=== PATIENT | male | born 1950 | race Caucasian/White ===

== ENCOUNTER → 2018-08-26 | Outpatient (CLI) | payer OTHER ==
[2018-08-26 17:04] LABS: BASOPHILS ABSOLUTE AUTO 0.05 K/mm3 (0.00-0.23); BASOPHILS PERCENT AUTO 1 % (0-2); EOSINOPHILS PERCENT AUTO 1 % (0-6); Hematocrit 46.3 % (37.0-53.0); Hemoglobin 15.9 g/dL (13.5-17.5); IMMATURE GRAN ABSOLUTE AUTO 0.02 K/mm3 (0.00-0.10); IMMATURE GRAN PERCENT AUTO 0 % (0-1); LYMPHOCYTES ABSOLUTE AUTO 1.65 K/mm3 (0.84-5.20); LYMPHOCYTES PERCENT AUTO 17 % (21-46); MONOCYTES ABSOLUTE AUTO 0.94 K/mm3 (0.16-1.47); MONOCYTES PERCENT AUTO 10 % (4-13); Mean Corpuscular HGB 32.4 pg (26.0-34.0); Mean Corpuscular HGB Conc 34.3 g/dL (31.5-36.5); Mean Corpuscular Volume 94 fL (80-100); Mean Platelet Volume 9.7 fL (9.1-12.4); NEUTROPHILS PERCENT AUTO 72 % (41-73); Platelet Count 315 K/mm3 (150-400); RDW Coefficient Variation 13.2 % (11.7-14.2); RDW Standard Deviation 46.1 fL (35.1-46.3); Red Blood Cell Count 4.91 M/mm3 (4.30-5.90); White Blood Cell Count 9.66 K/mm3 (4.00-11.30)
[2018-08-26 17:10] LABS: Anion Gap 9 mmol/L (6-16); Blood Urea Nitrogen 9 mg/dL (8-24); Bun/Creatinine Ratio 12.3 (12.0-20.0); CO2, Blood 28 mmol/L (21-32); Chloride, Blood 98 mmol/L (98-108); Creatinine, Blood 0.73 mg/dL (0.60-1.20); Glomerular Filtration Rate >60 (60-); Glucose, Blood 76 mg/dL (70-99); Potassium, Blood 3.6 mmol/L (3.5-5.5); Sodium, Blood 135 mmol/L (136-145); Uric Acid, Blood 4.5 mg/dL (3.5-7.2)
== END | disposition home or self-care (01) ==
LOC: LAB SHORT 16:58 → LAB EV 16:58
PROVIDERS: Family Medicine
DX: L03.032 Cellulitis of left toe (principal)
CPT/HCPCS: 80048; 84550; 85025

== ENCOUNTER 2018-12-23 17:50 | Inpatient (IN) | payer OTHER ==
[~2018-12-23] VITALS: Ht 167.6 cm; Wt 55.1 kg
[2018-12-23 18:45] LABS: BASOPHILS ABSOLUTE AUTO 0.05 K/mm3 (0.00-0.23); BASOPHILS PERCENT AUTO 1 % (0-2); EOSINOPHILS ABSOLUTE AUTO 0.15 K/mm3 (0.00-0.68); EOSINOPHILS PERCENT AUTO 2 % (0-6); Hematocrit 47.9 % (37.0-53.0); Hemoglobin 16.3 g/dL (13.5-17.5); IMMATURE GRAN ABSOLUTE AUTO 0.02 K/mm3 (0.00-0.10); IMMATURE GRAN PERCENT AUTO 0 % (0-1); LYMPHOCYTES ABSOLUTE AUTO 2.53 K/mm3 (0.84-5.20); LYMPHOCYTES PERCENT AUTO 32 % (21-46); MONOCYTES ABSOLUTE AUTO 0.68 K/mm3 (0.16-1.47); MONOCYTES PERCENT AUTO 9 % (4-13); Mean Corpuscular HGB 31.8 pg (26.0-34.0); Mean Corpuscular Volume 94 fL (80-100); Mean Platelet Volume 9.5 fL (9.1-12.4); NEUTROPHILS ABSOLUTE AUTO 4.48 K/mm3 (1.96-9.15); NEUTROPHILS PERCENT AUTO 57 % (41-73); Platelet Count 290 K/mm3 (150-400); RDW Coefficient Variation 12.8 % (11.7-14.2); RDW Standard Deviation 44.4 fL (35.1-46.3); Red Blood Cell Count 5.12 M/mm3 (4.30-5.90); White Blood Cell Count 7.91 K/mm3 (4.00-11.30)
[2018-12-23 19:02] LABS: Alanine Aminotransfer (ALT/SGP 34 U/L (12-78); Albumin, Blood 3.4 g/dL (3.4-5.0); Alk Phos 87 U/L (50-136); Anion Gap 8 mmol/L (6-16); Aspartate Aminotrans (AST/SGOT 94 U/L (12-37); Bilirubin, Total 0.5 mg/dL (0.1-1.0); Blood Urea Nitrogen 6 mg/dL (8-24); Bun/Creatinine Ratio 10.3 (12.0-20.0); CO2, Blood 28 mmol/L (21-32); Calcium, Blood 8.7 mg/dL (8.5-10.1); Chloride, Blood 101 mmol/L (98-108); Creatinine, Blood 0.58 mg/dL (0.60-1.20); Globulin, Blood 3.4 g/dL (2.2-4.0); Glomerular Filtration Rate >60 (60-); Glucose, Blood 96 mg/dL (70-99); Potassium, Blood 3.7 mmol/L (3.5-5.5); Sodium, Blood 137 mmol/L (136-145); Total Protein, Blood 6.8 g/dL (6.4-8.2)
[2018-12-23 21:50] LABS: International Normalized Ratio 0.97; Prothrombin Time Results 10.3 Sec (9.7-11.5)
--- NOTE | 2018-12-24 01:51 | NUR ---
LATE ENTRY: PATIENT ARRIVED TO ROOM VIA [facility] AROUND 2330. AND SON ACCOMPIED HIM. HE WAS ABLE TO TRANSFER FROM [facility] TO BED WITH NO PROBLEMS. HE DID HAVE PAIN WITH MOVEMENT. STATES PAIN IS 10/10 THEY JUST GAVE HIM FENTANYL WHICH WAS NOT WORKING. HE IS AOX3, PLEASANT AND COOPERATIVE. HAS NEVER BEEN TO A DOCTOR SINCE 1968. HAS NO MEDICAL HISTORY AND NO MEDS. LEFT GREAT TOE IS NECRTOTIC ON THE POSTERIOR WRAPPING UP TO THE TOENAIL. STATES IT HAS BEEN THIS WAY FOR 5 MONTHS, DID NOT CAUSE HIM PAIN, UNTIL LAST FEW DAYS WHEN THE PAIN STARTED UP THE LEG AND LOSS OF SENSATION. HE HAS NO FEELING EXCEPT PRESSURE FROM THE KNEE DOWN, DISCOLORATION IS NOTED FROM MID-GUERRA DOWN, LIMB IS COOL TO TOUCH, AND NO PULSE IS FELT. OVER ALL ASSESSMENT OTHER THEN LEG WAS BENIGN OF ANY FINDINGS. GAVE HIM ANOTHER DOSE OF FENTAYL AROUND 0015 NO OUTCOME WAS NOTED. CALLED HOSPITALIST AND GOT INCREASE IN FENTANYL. GAVE HIM ANOTHER DOSE OF 25MCG. THIS SEEMED TO HELP SOME, CRADLE PLACED OVER THE TOES, AND IV FLUIDS WERE STARTED RUNNING WITH HEPARIN. PATIENT NOW RESTING IN ROOM. WILL CONTINUE TO MONITOR.
[2018-12-24 05:17] LABS: BASOPHILS ABSOLUTE AUTO 0.06 K/mm3 (0.00-0.23); BASOPHILS PERCENT AUTO 1 % (0-2); EOSINOPHILS ABSOLUTE AUTO 0.09 K/mm3 (0.00-0.68); EOSINOPHILS PERCENT AUTO 1 % (0-6); Hematocrit 47.6 % (37.0-53.0); Hemoglobin 15.9 g/dL (13.5-17.5); IMMATURE GRAN ABSOLUTE AUTO 0.04 K/mm3 (0.00-0.10); IMMATURE GRAN PERCENT AUTO 0 % (0-1); LYMPHOCYTES PERCENT AUTO 16 % (21-46); MONOCYTES ABSOLUTE AUTO 1.06 K/mm3 (0.16-1.47); MONOCYTES PERCENT AUTO 9 % (4-13); Mean Corpuscular HGB 31.9 pg (26.0-34.0); Mean Corpuscular HGB Conc 33.4 g/dL (31.5-36.5); Mean Corpuscular Volume 95 fL (80-100); Mean Platelet Volume 9.7 fL (9.1-12.4); NEUTROPHILS PERCENT AUTO 74 % (41-73); Platelet Count 301 K/mm3 (150-400); Red Blood Cell Count 4.99 M/mm3 (4.30-5.90); White Blood Cell Count 12.45 K/mm3 (4.00-11.30)
[2018-12-24 05:32] LABS: International Normalized Ratio 1.02; Prothrombin Time Results 10.8 Sec (9.7-11.5)
[2018-12-24 05:43] LABS: Anion Gap 4 mmol/L (6-16); Blood Urea Nitrogen 6 mg/dL (8-24); Bun/Creatinine Ratio 10.2 (12.0-20.0); CHOL/HDL RATIO 2.3; CO2, Blood 30 mmol/L (21-32); Chloride, Blood 105 mmol/L (98-108); Cholesterol 125 mg/dL (50-200); Creatinine, Blood 0.59 mg/dL (0.60-1.20); Glomerular Filtration Rate >60 (60-); Glucose, Blood 92 mg/dL (70-99); HDL Cholesterol 54 mg/dL (>39); LDL/HDL RATIO 1.1; Low Density Lipoprotein Chol 58 mg/dL (0-110); Potassium, Blood 3.8 mmol/L (3.5-5.5); Sodium, Blood 139 mmol/L (136-145); Triglycerides 65 mg/dL (30-160); Very Low Density Lipoprot Chol 13 mg/dL (6-32)
--- NOTE | 2018-12-24 06:40 | NUR ---
SHIFT SUMMARY: PATIENTS PAIN WAS OUT OF CONTROL FROM MOMENT HE GOT TO THE FLOOR. MD WAS NOTIFIED AND INCREASE OF MEDS WAS COMPLETED. GAVE HIM EXTRA DOSE OF FENTENYL WHICH HELPED SOME BUT IT WAS NOT TILL THE NEXT DOSE HE GOT UNDER CONTROL. PAIN REMAINS TOLERABLE FOR 3 HOURS AND HE NEEDS ANOTHER DOSE. SON AND HAVE REMAINED IN THE ROOM TO ASSIST THE PATIENT. HE HAD ANOTHER DOSE LATER THIS MORNING, BUT STILL HAS NOT SLEPT WELL THROUGHOUT THE NIGHT. IV CONTINUED TO INFUSE WITH NO PROBLEMS, HEPARIN ADJUSTMENT WAS MADE THIS MORNING PER PHARMACY. MEDS GIVEN PER EMAR, NO OTHER ACUTE CHANGES OCCURED THIS SHIFT, WILL REPORT TO DAY RN.
--- NOTE | 2018-12-24 14:55 | NUR ---
PATIENT TO OR FOR ANGIOGRAM. REPORT CALLED TO ANDREW VELASQUEZ IN PCU.
--- NOTE | 2018-12-24 17:54 | NUR ---
PT ARRIVED TO PCU 6 VIA BED FROM [facility], HE IS SLEEPY WITH EYES CLOSED BUT A BIT RESTLESS WELL AND IS ATTEMPTING TO LIFT HIS HEAD, GROIN SITE IS CLEAR AND SOFT, LEG IS SOFT AND PINK, NS AT 100MLS/HR HUNG, VS STABLE, CALL LIGHT IN REACH, FAMILY IN ROOM.
--- NOTE | 2018-12-24 23:31 | NUR ---
PT REPORTS SENSATION RETURNING TO L LOWER LEG & C/O PAIN IN L LEG. MEDICATING PER EMAR & PT REQUEST. PT VSS. R GROIN SITE WNL. WILL CONTINUE TO MONITOR AND PROVIDE CARE.
[2018-12-25 03:39] LABS: BASOPHILS ABSOLUTE AUTO 0.05 K/mm3 (0.00-0.23); BASOPHILS PERCENT AUTO 0 % (0-2); EOSINOPHILS ABSOLUTE AUTO 0.01 K/mm3 (0.00-0.68); EOSINOPHILS PERCENT AUTO 0 % (0-6); Hemoglobin 16.2 g/dL (13.5-17.5); IMMATURE GRAN ABSOLUTE AUTO 0.04 K/mm3 (0.00-0.10); IMMATURE GRAN PERCENT AUTO 0 % (0-1); LYMPHOCYTES ABSOLUTE AUTO 0.95 K/mm3 (0.84-5.20); LYMPHOCYTES PERCENT AUTO 8 % (21-46); MONOCYTES ABSOLUTE AUTO 1.03 K/mm3 (0.16-1.47); MONOCYTES PERCENT AUTO 9 % (4-13); Mean Corpuscular HGB 31.8 pg (26.0-34.0); Mean Corpuscular HGB Conc 33.1 g/dL (31.5-36.5); Mean Corpuscular Volume 96 fL (80-100); Mean Platelet Volume 9.5 fL (9.1-12.4); NEUTROPHILS ABSOLUTE AUTO 9.22 K/mm3 (1.96-9.15); NEUTROPHILS PERCENT AUTO 82 % (41-73); Platelet Count 285 K/mm3 (150-400); RDW Standard Deviation 46.8 fL (35.1-46.3)
[2018-12-25 03:59] LABS: Alanine Aminotransfer (ALT/SGP 31 U/L (12-78); Albumin, Blood 3.1 g/dL (3.4-5.0); Alk Phos 78 U/L (50-136); Anion Gap 8 mmol/L (6-16); Aspartate Aminotrans (AST/SGOT 66 U/L (12-37); Bilirubin, Total 0.6 mg/dL (0.1-1.0); Blood Urea Nitrogen 6 mg/dL (8-24); Bun/Creatinine Ratio 11.8 (12.0-20.0); CO2, Blood 26 mmol/L (21-32); Calcium, Blood 8.1 mg/dL (8.5-10.1); Chloride, Blood 105 mmol/L (98-108); Creatinine, Blood 0.51 mg/dL (0.60-1.20); Globulin, Blood 3.1 g/dL (2.2-4.0); Glomerular Filtration Rate >60 (60-); Glucose, Blood 112 mg/dL (70-99); Potassium, Blood 3.5 mmol/L (3.5-5.5); Sodium, Blood 139 mmol/L (136-145); Total Protein, Blood 6.2 g/dL (6.4-8.2)
--- NOTE | 2018-12-25 04:00 | NUR ---
HEMATOMA R GROIN ACCESS SITE WNL T/O RECOVERY W/ NO BLEEDING, NO HEMATOMA. UPON REASSESSMENT @ 0315 PT FOUND TO HAVE FIST SIZED HEMATOMA PRESENT AT R GROIN ACCESS SITE. PRESSURE HELD FOR 15 MIN W/ RETURN TO NORMAL. HEMATOMA RETURN 5 MIN LATER W/ FURTHER PRESSURE HELD BY THIS NURSE & TRADING OUT W/ 2 OTHER RN'S. SITE RETURN TO WNL, MARKER USED TO TRACE OUTLINE OF HEMATOMA DIAMETER. WILL CONTINUE TO MONITOR AND PROVIDE CARE.
--- NOTE | 2018-12-25 07:50 | NUR ---
AM NOTE. ASSUMED CARE OF PT APROX 0700, PT IS VERY ANXIOUS AND ATTEMPTING TO CRAWL OUT OF BED, PT HAS LIS VEST IN PLACE BUT HAS BEEN ABLE TO GET OUT OF IT MULTIPLE TIMES THIS MORNING. PT HAS RIGHT GROIN SITE WITH LARGE BRUISED AREA THAT IS TENDER TO TOUCH WITH SMALL AREA OF OLD BLOOD. PT IS VERY CONFUSED AND AGRESSIVE AT THIS TIME, UNABLE TO FOLLOW DIRECTIONS AND KEEPS PULLING THE TELE OFF. PT WAS ABLE TO BREAK HIS IV LINE AND REMOVE THE LIS VEST AND ATTEMPTED TO GET OUT OF BED. PT C/O OF SEVERE PAIN TO HIS LEFT LEG WITH STANDING, NO HEMATOMA, REDNESS OR SWELLING IS NOTED. PEDAL PULSE TO THE LEFT FOOT IS VERY FAINT TO PALP AND DOPPLER IS USED. PT HAD 1 EPISODE OF INCONT OF URINE DURING THIS TIME, AN ATTENDS WAS PALCED FOR DIGNITY. PT BECAME AGRESSIVE WITH THIS RN AND THREATENED TO "SLAM YOUR HEAD THROUGH THIS WALL IF YOU D0N'T LET ME GO HOME NOW!" PT WAS MEDICATED FOR PAIN AT THIS TIME AND PT WAS ABLE TO CALM DOWN AND IS CURRENTLY SLEEPING. CALL LIGHT IN REACH, BED IS LOCKED AND LOW WILL CONTINUE TO MONITOR.
--- NOTE | 2018-12-25 07:56 | NUR ---
SHIFT SUMMARY PT A&O X4 W/ FAMILY AT BEDSIDE UNTIL 0330 THIS MORNING ASSISTING PT AND REMINDING PT TO REMAIN FLAT WHILE IN RECOVERY PORTION W/ 6H BEDREST PER ORDERS. PT R GROIN SITE WNL T/O RECOVERY STAGE W/ NO BLEEDING, NO HEMATOMA UNTIL PT FOUND TO HAVE HEMATOMA @ 0315 THIS AM. PRESSURE HELD AND SITE RETURN NORMAL (SEE PREVIOUS NOTE). PT THEN BECOMING INCREASINGLY RESTLESS UNABLE TO REMAIN STILL IN BED THIS AM. CALL TO MD GOODMAN W/ ORDERS FOR ONE TIME IV ATIVAN X2 THIS SHIFT AND THEN ANOTHER CALL FOR LIS VEST RESTRAINT D/T PT ATTEMPTING TO GET OUT OF BED MULTIPLE TIMES. PT NEWLY DISORIENTED, APOLOGIZING FOR GETTING UP, STATING "I'M TRYING TO GO TO BED" W/ PT REMINDER OF ALREADY BEING IN BED. EPISODE OF INCONTINENCE, ALSO NEW FOR PT. PT IN BED W/ CALL LIGHT IN REACH, BED ALARM & LIS VEST ON. REPORT GIVEN TO DAY SHIFT RN.
--- NOTE | 2018-12-25 18:11 | NUR ---
SHIFT SUMMARY. PT'S MENTATION HAS GREATLY CLEARED AND THE PT IS CURRENTLY A&Ox4, PT IS VERY PLEASENT AND COOPERATIVE WITH CARE NO LONGER PULLING ON HIS TELE OR IV. GROIN SITE IS UNCHANGED, STILL LARGE AREA OF BRUISING DECENDING DOWN HIS RIGHT SCROTUM, AREA IS SOFT AND NONTENDER AT THIS TIME. AT APROX 1400 TRAVEL OCCUPATIONAL THERAPIST PROVIDER WAS IN THE ROOM AND WAS UNABLE TO FIND ANY PEDAL/POPLIATEAL PULSES WITH THE DOPPLER, THIS IS A CHANGE FROM THIS MORNING, PT'S LEFT FOOT AND LEG IS ALSO MORE COOL TO THE TOUCH THAN BEFORE, PT IS C/O OF INCREASED SEVERE PAIN TO THE LEFT FOOT WELL. TRAVEL OCCUPATIONAL THERAPIST PROVIDER IS TAKING THE PT BACK TO THE TRAVEL OCCUPATIONAL THERAPIST TONIGHT TO ATTEMPT TO RE-CATH. PT IS AGREEABLE, CONSENT WAS SIGNED WITH THIS RN A WITNESS. PT'S VS HAVE BEEN STABLE T/O SHIFT, PT HAS HAD FAMILY AT THE BEDSIDE FOR MOST OF THE DAY. CALL LIGHT IN REACH, BED IS LOCKED AND LOW WILL CONTINUE TO MONITOR UNTIL REPORT IS GIVEN TO ONCOMING RN.
--- NOTE | 2018-12-25 20:22 | NUR ---
ASSUMED CARE OF PT 1915. REPORT RECEIVED. PT PRESENTS IN BED. ALERT AND ORIENTED. PLEASANT AND COOPERATIVE WITH CARE AND ASSESSMENT. PT CURRENTLY HAS BEEN TAKEN TO SALES EXECUTIVE FOR ADDITIONAL PROCEDURE. PT LEAVES AT 2014. NO COMPLAINTS OF PAIN OR DISTRESS VOICED BY PT. WILL REVIEW CHART AND PLAN OF CARE FOR THIS PT. WILL AWAIT HIS RETURN POST PROCEDURE.
--- NOTE | 2018-12-26 | NUR ---
PT RETURNS FROM [facility]NAGER AT 2205 S/P PERIPHERAL PROCEDURE WITH RIGHT GROIN ACCESS FOR LEFT LEG ACCESS. PALPABLE PEDAL PULSE TO LEFT FOOT. FAINT BUT DETECTABLE. RIGHT GROIN SITE WITH SURROUNDING ECCHYMOSIS AND MILD RESIDUAL ENDURATION SECONDARY TO PREVIOUS DAY'S REBLEED. PT STATES SITE IS SOMEWHAT TENDER TO TOUCH. BOTH LOWER EXTREMITIES WARM TO THE TOUCH. FAMILY HAS LEFT FOR THE NIGHT. BED ALARM PLACED ACTIVE TO BED SECONDARY TO PT'S IMPULSIVENESS, AND AMS S/P PROCEDURE. DRESSING OVER GROIN SITE WITH SMALL AMOUNT OF OOZE. WILL CONTINUE TO MONITOR PT.
--- NOTE | 2018-12-26 03:58 | NUR ---
PT CONTINUES WITH SHORT TERM MEMORY DEFICITS. HAS ATTEMPTED TO GET OUT OF BED ONCE WHICH ACTIVATED BED ALARM. PT GOT HIMSELF BETWEEN SIDE RAILINGS AND THIS SLOWED HIM DOWN ON TRYING TO AMBULATE. GOT PT IN BED AFTER VOIDING, AND RECHECK OF GROIN SITE DONE. NO NEW BLEED OR HEMATOMA TO NOTE. PT INSTRUCTED TO CALL IF HE NEEDED HELP. PT STATES HE WOULD. BED ALARM AGAIN TURNED ON. HAVE INCREASED FREQUENCY OF ROUNDING AND HAVE OFFERED BATHROOM ASSIST AT EACH ROUNDING. WILL CONTINUE TO CLOSELY MONITOR PT.
[2018-12-26 04:05] LABS: BASOPHILS ABSOLUTE AUTO 0.05 K/mm3 (0.00-0.23); BASOPHILS PERCENT AUTO 0 % (0-2); EOSINOPHILS ABSOLUTE AUTO 0.07 K/mm3 (0.00-0.68); EOSINOPHILS PERCENT AUTO 1 % (0-6); Hematocrit 46.4 % (37.0-53.0); Hemoglobin 15.1 g/dL (13.5-17.5); IMMATURE GRAN ABSOLUTE AUTO 0.03 K/mm3 (0.00-0.10); IMMATURE GRAN PERCENT AUTO 0 % (0-1); LYMPHOCYTES ABSOLUTE AUTO 1.23 K/mm3 (0.84-5.20); LYMPHOCYTES PERCENT AUTO 10 % (21-46); MONOCYTES ABSOLUTE AUTO 1.52 K/mm3 (0.16-1.47); MONOCYTES PERCENT AUTO 12 % (4-13); Mean Corpuscular HGB 31.2 pg (26.0-34.0); Mean Corpuscular HGB Conc 32.5 g/dL (31.5-36.5); Mean Corpuscular Volume 96 fL (80-100); Mean Platelet Volume 9.6 fL (9.1-12.4); NEUTROPHILS ABSOLUTE AUTO 10.03 K/mm3 (1.96-9.15); NEUTROPHILS PERCENT AUTO 78 % (41-73); Platelet Count 255 K/mm3 (150-400); RDW Coefficient Variation 12.8 % (11.7-14.2); RDW Standard Deviation 45.8 fL (35.1-46.3); Red Blood Cell Count 4.84 M/mm3 (4.30-5.90); White Blood Cell Count 12.93 K/mm3 (4.00-11.30)
[2018-12-26 04:25] LABS: Alanine Aminotransfer (ALT/SGP 24 U/L (12-78); Albumin, Blood 2.8 g/dL (3.4-5.0); Albumin/Globulin Ratio 0.9 (0.8-1.8); Alk Phos 68 U/L (50-136); Anion Gap 7 mmol/L (6-16); Aspartate Aminotrans (AST/SGOT 66 U/L (12-37); Bilirubin, Total 0.6 mg/dL (0.1-1.0); Blood Urea Nitrogen 6 mg/dL (8-24); Bun/Creatinine Ratio 11.7 (12.0-20.0); CO2, Blood 28 mmol/L (21-32); Calcium, Blood 7.7 mg/dL (8.5-10.1); Chloride, Blood 101 mmol/L (98-108); Creatinine, Blood 0.52 mg/dL (0.60-1.20); Glomerular Filtration Rate >60 (60-); Glucose, Blood 91 mg/dL (70-99); Potassium, Blood 3.4 mmol/L (3.5-5.5); Sodium, Blood 136 mmol/L (136-145); Total Protein, Blood 5.8 g/dL (6.4-8.2)
--- NOTE | 2018-12-26 07:57 | NUR ---
AM NOTE. ASSUMED CARE OF PT APROX 0700, PT IS A&Ox4 THIS AM, PT'S MENTATION HAS GREATLY IMPROVED FROM YESTERDAY MORNING. PT IS S/P REVASCULARIZATION OF THE LEFT LEG. PT'S LEFT LEG AND FOOT ARE PINK AND WARM WITH PALP PEDAL PULSE, DOPPLER WAS USED AND POPLIOTEAL PULSE WAS FOUND. PT STATES SOME MILD DISCOMFORT TO THE FOOT AND LEG ESPECIALLY WHEN TOUCHED BUT DENIES ANY NUMB/TINGLING AT THIS TIME. CAP REFILL TO THE LEFT TOES IS LESS THAN 3 SECONDS. PT'S VS STABLE. L/S CLEAR T/O DIM IN THE BASES AND >90% ON RA. NO EDEMA NOTED ON ASSESSMENT. RIGHT GROIN SITE HAS VERY LARGE BRUISED AREA THAT GOES INTO THE SCROTUM AND PENIS AND MIDWAY DOWN THE RIGHT THIGH AND RLQ. NO SWELLING OR HEMATOMA IS NOTED TO THIS SITE. CALL LIGHT IN REACH, BED ALARM IS ON , WILL CONTINUE TO MONITOR.
--- NOTE | 2018-12-26 17:37 | NUR ---
SHIFT SUMMARY. NO ACUTE CHANGES NOTED THIS SHIFT. PT IS CURRENTLY A&Ox4 WITH NO CONFUSION SINCE EARLY THIS AM. PT'S LEFT FOOT IS STILL PINK AND WARM WITH PALP PEDAL PULSE WITH LESS THAN 3 SECOND CAP REFIL. PT STATES 5/10 PAIN TO THAT LEG BUT DENIES THE NEED FOR PAIN MEDICATION AT THIS TIME. PT HAS BEEN SLIGHTLY FEBRILE AT 99.3 TO 99.1 TODAY. PT'S OTHER VS STABLE. PT HAS BEEN ABLE TO WALK TO THE BATHROOM TO VOID AND HAVE A BM WITH SBA. PT HAS REQUESTED TO REMOVE THE TELE, PROVIDER WAS CALLED AND ORDERS OBTAINED TO REMOVE TELE AT THIS TIME. PT HAS PODIATRY CONSULT PLACED AND CALLED IN FOR THE AM TO ASSESS THE LEFT GREAT TOE. PT'S WAS AT THE BEDSIDE MOST OF THIS SHIFT. CALL LIGHT IN REACH, BED IS LOCKED AND LOW WILL CONTINUE TO MONITOR UNTIL REPORT IS CALLED TO ONCOMING RN.
--- NOTE | 2018-12-26 19:30 | NUR ---
ASSUME CARE: REPORT RECIEVED FROM OFF GOING RN JOSUÉ. A\O VISITS ON PHONE. LUNG SOUNDS CLEAR UPPER LOBES WITH DECREASED SOUNDS IN THE BASES. RESPIRATIONS REGULAR AND EASY ABDOMEN SOFT WITH BOWEL SOUNDS FOUR QUADS. GAIT STEADY WITH ONE ASSIST AND WALKER TO TOILET. VOIDS GREYSON URINE. GROIN SITE CLEAR SOFT WITH ECCYMOSISI TO FLANK AND THIGH. DRESSING INTACT. PEDAL PULSES PRESENT WITH DOPPLER FAINT TO PALPATION.TEMP 100.1 CONTINUE TO MONITOR AND REPORT CHANGE IN PATIENT CONDITION. BED ALARM ON.
[2018-12-27 04:14] LABS: Albumin, Blood 2.4 g/dL (3.4-5.0); Anion Gap 8 mmol/L (6-16); Blood Urea Nitrogen 8 mg/dL (8-24); CO2, Blood 28 mmol/L (21-32); Calcium, Blood 7.8 mg/dL (8.5-10.1); Chloride, Blood 102 mmol/L (98-108); Creatinine, Blood 0.57 mg/dL (0.60-1.20); Glomerular Filtration Rate >60 (60-); Glucose, Blood 96 mg/dL (70-99); Phosphorus, Blood 2.8 mg/dL (2.5-4.9); Sodium, Blood 138 mmol/L (136-145)
--- NOTE | 2018-12-27 07:16 | NUR ---
SHIFT SUMMARY : RESTS QUIETLY WHEN UNDISTURBED. AT BEDSIDE ATTENTIVE TO NEEDS. LUNGS COARSE DECREASED IN BASES RESPIRATIONS REG AND EASY AT REST. RATE 16-20 SPO2 94-96% MARTIN=OMEN SOFT WITH BOWEL SOUNDS FOUR QUADS. VOIDS GREYSON URINE TWO BOWEL MOVEMENTS THIS SHIFT. GROIN SITE CLEAR HOWEVER BRUISED SOFT . PEDAL PULSES PRESENT WITH DOPPLER. CONTINUE TO MONITOR AND REPORT CHANGE IN PATIENT CONDITION.
--- NOTE | 2018-12-27 08:30 | NUR ---
Recieved report from Shwetha MORALES. Patient in bed awake with and patients side. He is on RA and sats upper 90%'s. He has 20ga RFA and flushed and SL'd. He is eating breakfast without assistance. He has podiatry consult and will be in shortly. His groin site bruised but stable and no increased hematoma. Left foot big toe black on tip and foot has pulse by doppler.
--- NOTE | 2018-12-27 10:17 | NUR ---
Dr Rodriguez was by and want him in office first part of week. dr Fajardo has also been by and will be discharging patient. Patient tolerated PO meds without difficulty
[2018-12-27] MEDS ORDERED: ASPI81CH PO (11:03)
[2018-12-27] MEDS ORDERED: ATORVASTATIN CA20 MG PO (11:03)
[2018-12-27] MEDS ORDERED: Cilostazol50 MG PO (11:03)
[2018-12-27] MEDS ORDERED: Senna Plus Tab1 EACH PO (11:04)
[2018-12-27] MEDS ORDERED: B-1100 MG PO (11:08)
[2018-12-27] MEDS ORDERED: Norco 5-325 Ta1 EACH PO (11:08)
--- NOTE | 2018-12-27 11:47 | NUR ---
PATIENT DISCHARGED HOME WITH WRITTEN INSTRUCTIONS. HE WAS GIVEN STENT CARD FOR [facility]. HIM AND SPOUSE RETUNED UNDERSTANDING OF INFORMATION AND FOLLOW UP APPOINTMENT. REVIEWED MED AND THEY WERE CALLED INTO [facility]. APPLIED POST OP SHOE TO LEFT FOOT AND HE WAS TAKEN OUT IN WHEELCHAIR TO POV. PULLED LFA IV INTACT AND SITE WNL'S.
== END 2018-12-27 11:24 | disposition home or self-care (01) | DRG 252 ==
LOC: ER 17:50 → PCU 21:43 → MEDS 21:43 → ER 23:27 → MEDS 23:32 → PCU 12-24 15:01
PROVIDERS: Emergency Medicine; Internal Medicine; Nurse Practitioner Acute Care; Physician Assistant; ADMIT Hospitalist
PROC: 047L3ZZ Dilation of Left Femoral Artery, Percutaneous Approach (ICD-10-PCS; principal; 2018-12-24)
PROC: 047L3ZZ Dilation of Left Femoral Artery, Percutaneous Approach (ICD-10-PCS; 2018-12-25)
DX: I74.3 Embolism and thrombosis of arteries of the lower extremities (principal); G92 Toxic encephalopathy; I96 Gangrene, not elsewhere classified; F17.210 Nicotine dependence, cigarettes, uncomplicated; F10.20 Alcohol dependence, uncomplicated; S30.1XXA Contusion of abdominal wall, initial encounter
CPT/HCPCS: 36140; 36415; 37221; 37224; 37225; 73660; 75625; 75716; 75774; 76937; 80048; 80053; 80061; 80069; 83735; 85025; 85347; 85610; 85651; 85730; 86140; 93926; 99152; 99153; 99284; A9270; A9270-GY; C1714; C1725; C1760; C1769; C1876; C1884; C1887; C1894; C2623; J0360; J1170; J1200; J1644; J2060; J2250; J3010; J7030; Q9967

== ENCOUNTER 2018-12-30 06:16 | Day surgery (SDC) | payer OTHER ==
[~2018-12-30] VITALS: Ht 167.6 cm; Wt 54.6 kg
[~2018-12-30 06:16] MED LIST: ASPI81CH PO; ATORVASTATIN CA20 MG PO; B-1100 MG PO; Cilostazol50 MG PO; Norco 5-325 Ta1 EACH PO; Senna Plus Tab1 EACH PO
--- NOTE | 2018-12-30 08:35 | NUR ---
12/30/18 0835 Raine Smallwood PT INTO RECLINER W/O DIFFICULTY. PT DENIES NAUSEA. PT C/O PAIN IN LEFT FOOT. PT RATES PAIN 3/10 AND DESCRIBES IT THROBBING. WHEN OFFERED PAIN MEDICATION, PT STATES "I DON'T FEEL LIKE I NEED ANYTHING RIGHT NOW." RN INSTRUCTED THAT PAIN MEDICATION IS AVAILABLE IF HE CHOOSES. ICE AND ELEVATION IMPLENTED. SCANT DRIED BLOOD VISIBLE ON LEFT SECOND AND THIRD TOES. DRESSING CDI.
== END 2018-12-30 09:05 | disposition home or self-care (01) ==
LOC: ORSCSDS 06:16
PROVIDERS: Podiatrist Foot & Ankle Surgery
PROC: 0Y6Q0Z0 Detachment at Left 1st Toe, Complete, Open Approach (ICD-10-PCS; principal; 2018-12-30 07:30)
DX: M86.172 Other acute osteomyelitis, left ankle and foot (principal); I96 Gangrene, not elsewhere classified; F17.210 Nicotine dependence, cigarettes, uncomplicated; Z79.82 Long term (current) use of aspirin; Z79.899 Other long term (current) drug therapy
CPT/HCPCS: 88305; 88311; 93005; 93010; J0690; J1100; J2250; J2405; J2704; J7120

== ENCOUNTER 2020-08-24 05:59 | Day surgery (SDC) | payer OTHER, SELFPAY ==
[~2020-08-24] VITALS: Ht 167.6 cm; Wt 66.0 kg
[2020-08-24] MEDS ORDERED: MELA3 PO (07:06)
[2020-08-24] MEDS ORDERED: VITAMIN D31000 UNI1 PO (07:07)
[2020-08-24] MEDS ORDERED: VIT B 12 PO (07:08)
--- NOTE | 2020-08-24 10:05 | NUR ---
PT TO RECOVERY POST PROCEDURE. PT AWAKE AND CONVERSING APPROPRIATELY; DENIES PAIN AT SITE. MONITOR SR 60-70'S, B/P 128/61, AFEBRILE, SPO2 100% RA. R GROIN SITE NO SWELLING/HEMATOMA, TEGADERM DRSG INTACT; RLE PULSES REMAIN DOPPLER (UNCHANGED FROM PREVIOUS). PT TAKING SIPS OF H2O WITHOUT ISSUES.
--- NOTE | 2020-08-24 12:05 | NUR ---
PT'S HOB ELEVATED, SITE UNCHANGED-TAKING LUNCH WITHOUT ISSUE. PT'S UPDATED WITH PT'S CONSENT.
--- NOTE | 2020-08-24 12:45 | NUR ---
PT AMB IN ROOM WITHOUT ISSUE, VOIDED QS-SITE UNCHANGED WITH ACTIVITY.
--- NOTE | 2020-08-24 12:55 | NUR ---
PT RECEIVED DISCHARGE INSTRUCTIONS, MED LIST AND AFTER CARE INSTRUCTIONS; VERBALIZED GOOD UNDERSTANDING. PT LEFT FACILITY VIA W/C, CONDITION STABLE.
--- NOTE | 2020-08-24 12:55 | NUR ---
PT DRESSED SELF WITHOUT ISSUE, SITE UNCHANGED, IV REMOVED-CANNULA INTACT.
== END 2020-08-24 12:55 | disposition home or self-care (01) ==
LOC: MHTC 05:59
DX: I70.213 Atherosclerosis of native arteries of extremities with intermittent claudication, bilateral legs (principal); R20.8 Other disturbances of skin sensation; I10 Essential (primary) hypertension; Z87.891 Personal history of nicotine dependence; Z79.82 Long term (current) use of aspirin; Z89.412 Acquired absence of left great toe
CPT/HCPCS: 37220; 75625; 75716; 75774; 85347; 99152; 99153; C1725; C1757; C1760; C1769; C1887; C1894; C2623; C9764; J0360; J1644; J2250; J3010; J7030; J7050; Q9967

== ENCOUNTER 2020-09-14 06:07 | Day surgery (SDC) | payer OTHER ==
[~2020-09-14] VITALS: Ht 142.2 cm; Wt 66.0 kg
[~2020-09-14 06:07] MED LIST changes: +MELA3 PO; +VIT B 12 PO; +VITAMIN D31000 UNI1 PO
--- NOTE | 2020-09-14 09:21 | NUR ---
PT RETURNED TO RECOVERY ROOM IN BED. LEFT FEMORAL GROIN SITE SOFT NON-TENDER WITH NO HEMATOMA, NO PULSATILE BLEEDING AND INTACT DRESSING. PT DENIES CP. L PT PULSE DOPPLER. CALL LIGHT IN REACH.
--- NOTE | 2020-09-14 11:26 | NUR ---
PT AMBULATED TO BR TO VOID. LEFT FEMORAL GROIN SITE SOFT NON-TENDER WITH NO HEMATOMA, NO PULSATILE BLEEDING. DISCHARGE INSTRUCTIONS REVIEWED AND ALL QUESTIONS ANSWERED.
--- NOTE | 2020-09-14 11:51 | NUR ---
NO CHANGES TO LEFT FEMORAL GROIN SITE; SOFT NON-TENDER WITH NO HEMATOMA, NO PULSATILE BLEEDING AND INTACT DRESSING. 20 G IV DISCONTINUED FROM LEFT WRIST. PT ESCORTED OUT VIA WHEELCHAIR ESCORT.
--- NOTE | 2020-09-14 11:53 | NUR ---
LEFT WRIST 20 G IV HAD INTACT CANNULA WHEN DISCONTINUED.
== END 2020-09-14 11:50 | disposition home or self-care (01) ==
LOC: MHTC 06:07
DX: I70.213 Atherosclerosis of native arteries of extremities with intermittent claudication, bilateral legs (principal); I10 Essential (primary) hypertension; Z89.412 Acquired absence of left great toe; Z87.891 Personal history of nicotine dependence
CPT/HCPCS: 75625; 75716; 75774; 99152; 99153; C1725; C1757; C1760; C1769; C1887; C1894; C2623; C9764; J1644; J2250; J3010; J7030; J7050; Q9967

== ENCOUNTER 2020-09-19 14:37 | Day surgery (SDC) | payer OTHER ==
[~2020-09-19] VITALS: Ht 167.6 cm; Wt 67.4 kg
[2020-09-19 15:41] LABS: BASOPHILS ABSOLUTE AUTO 0.05 K/mm3 (0.00-0.23); BASOPHILS PERCENT AUTO 1 % (0-2); EOSINOPHILS ABSOLUTE AUTO 0.04 K/mm3 (0.00-0.68); EOSINOPHILS PERCENT AUTO 1 % (0-6); Hematocrit 49.9 % (37.0-53.0); Hemoglobin 16.5 g/dL (13.5-17.5); IMMATURE GRAN ABSOLUTE AUTO 0.03 K/mm3 (0.00-0.10); IMMATURE GRAN PERCENT AUTO 0 % (0-1); LYMPHOCYTES ABSOLUTE AUTO 1.82 K/mm3 (0.84-5.20); LYMPHOCYTES PERCENT AUTO 22 % (21-46); MONOCYTES ABSOLUTE AUTO 1.03 K/mm3 (0.16-1.47); MONOCYTES PERCENT AUTO 13 % (4-13); Mean Corpuscular HGB Conc 33.1 g/dL (31.5-36.5); Mean Corpuscular Volume 94 fL (80-100); Mean Platelet Volume 9.3 fL (9.1-12.4); NEUTROPHILS ABSOLUTE AUTO 5.16 K/mm3 (1.96-9.15); NEUTROPHILS PERCENT AUTO 63 % (41-73); Platelet Count 314 K/mm3 (150-400); RDW Coefficient Variation 13.1 % (11.7-14.2); RDW Standard Deviation 45.1 fL (35.1-46.3); Red Blood Cell Count 5.33 M/mm3 (4.30-5.90); White Blood Cell Count 8.13 K/mm3 (4.00-11.30)
[2020-09-19 15:53] LABS: International Normalized Ratio 0.97; Prothrombin Time Results 10.4 Sec (9.7-11.5)
[2020-09-19 15:59] LABS: Anion Gap 8 mmol/L (6-16); Blood Urea Nitrogen 11 mg/dL (8-24); Bun/Creatinine Ratio 16.9 (12.0-20.0); CO2, Blood 27 mmol/L (21-32); Calcium, Blood 8.7 mg/dL (8.5-10.1); Chloride, Blood 100 mmol/L (98-108); Creatinine, Blood 0.65 mg/dL (0.60-1.20); Glomerular Filtration Rate >60 (60-); Glucose, Blood 88 mg/dL (70-99); Sodium, Blood 135 mmol/L (136-145)
[2020-09-19 16:23] LABS: Influenza A, PCR NEGATIVE (NEGATIVE); Influenza B, PCR NEGATIVE (NEGATIVE); Resp Syncytial Virus, PCR NEGATIVE (NEGATIVE); SARS-Cov-2 (COVID-19) PCR, MMC NEGATIVE (NEGATIVE)
--- NOTE | 2020-09-19 18:05 | NUR ---
Pt's was called by Twila Moscoso RN, to update on pt's arrival to PCU and stable status. Pt arrived from laborer hoisting, alert and oriented, denies any pain. Lying flat, and right groin site is without bleeding, bruising, hematoma. Posterior tibial pulse palpated in the right ankle, verified with doppler. Posterior tibial pulse on the left ankle unable to palpate but did auscultate with doppler. Left foot is cool, pink, with cyanotic nail beds and capillary refill 5-6 seconds. Pt states that he is getting more feeling back in the left foot. Right foot is pale, not as cool, and has brisk capillary refill. Vital signs are stable. Bedside report received from Stanley Shirley RN.
[2020-09-19 19:01] LABS: International Normalized Ratio 1.08; Prothrombin Time Results 11.5 Sec (9.7-11.5)
--- NOTE | 2020-09-20 06:33 | NUR ---
SHIFT SUMMARY PT IS ALERT AND ORIENTED. VITALS ARE STABLE AND THERE HAVE BEEN NO ACUTE CHANGES. PT DENIES SOB OR CHEST PAIN. PT HAS HAD SEVERE PAIN IN LEFT FOOT 02/23. MEDICATED PER EMAR AND APPLIED COLD THERAPY. HE STATES THAT HE HAS HAD PINS AND NEEDLE BEFORE BEING ADMITTED. RIGHT FEMORAL SITE IS C/D/I. HEPARIN IS INNFUSING. USES CALL LIGHT APPROPRIETLY.
--- NOTE | 2020-09-20 08:50 | NUR ---
Pt states left foot pain has "mellowed out".
--- NOTE | 2020-09-20 09:51 | NUR ---
kiln charger Farzana spoke with Dr. Kamara, to ask about pt's discharge this morning as there are not yet any orders. The physician states that he will be here to see the pt in about an hour.
--- NOTE | 2020-09-20 11:32 | NUR ---
Dr. Kamara here, states he will be discharging the patient. Called pt's Isabela, who is coming from [facility] to pick the pt up in about an hour.
[2020-09-20] MEDS ORDERED: CLOP75 PO (11:40)
[2020-09-20] MEDS ORDERED: Norco 5-325 Ta1 EACH PO (11:41)
[2020-09-20] MEDS ORDERED: Vitamin B-121000 MCG PO (11:55)
--- NOTE | 2020-09-20 12:09 | NUR ---
Discharge instructions were reviewed with the patient. Called cardiology office to make pt's hospital follow up appointment; Xochilt who makes the appointments is not available right now. I was told by the finishing lab technician that Xochilt from Dr. Kamara's office will call pt to set up f/u appointment for 1 week from now. Rx faxed over to [facility]. to come diamond picker the pt in about half an hour from now.
== END 2020-09-20 12:31 | disposition home or self-care (01) ==
LOC: MHTC 14:37 → PCU 18:16 → MHTC 09-20 12:31 → PCU 09-20 12:31
PROVIDERS: Pharmacist; Radiology Diagnostic Radiology
PROC: 047J3EZ Dilation of Left External Iliac Artery with Two Intraluminal Devices, Percutaneous Approach (ICD-10-PCS; principal; 2020-09-19)
PROC: 047L3Z1 Dilation of Left Femoral Artery using Drug-Coated Balloon, Percutaneous Approach (ICD-10-PCS; 2020-09-19)
PROC: 04FL3ZZ Fragmentation of Left Femoral Artery, Percutaneous Approach (ICD-10-PCS; 2020-09-19)
PROC: B41GZZZ Fluoroscopy of Left Lower Extremity Arteries (ICD-10-PCS; 2020-09-19)
PROC: B41CZZZ Fluoroscopy of Pelvic Arteries (ICD-10-PCS; 2020-09-19)
PROC: B41FZZZ Fluoroscopy of Right Lower Extremity Arteries (ICD-10-PCS; 2020-09-19)
DX: I70.223 Atherosclerosis of native arteries of extremities with rest pain, bilateral legs (principal); I77.1 Stricture of artery; Z87.891 Personal history of nicotine dependence; Z79.82 Long term (current) use of aspirin
CPT/HCPCS: 0241U; 36415; 37221; 75716; 75774; 80048; 85025; 85347; 85610; 85730; 99152; 99153; A9270; A9270-GY; C1725; C1757; C1769; C1874; C1876; C1887; C1894; C2623; C9764; J0360; J1644; J2250; J3010; J7030; Q9967

== ENCOUNTER 2023-10-15 11:09 | Emergency (ER) | payer OTHER ==
[~2023-10-15] VITALS: Ht 167.6 cm; Wt 68.0 kg
[~2023-10-15 11:09] MED LIST changes: +AMLODIPINE BESYL5 MG PO; +ATORVASTATIN CA80 M1 PO; +CLOP75 PO; +DULO60 PO; +PREG75 PO; +TRAZ50 PO; +Vitamin B-121000 MCG PO
[2023-10-15] MEDS ORDERED: Vitamin D1000 UNI1 PO (12:56)
[2023-10-15 14:15] VITALS: BP 161/61
[2023-10-17] MEDS ORDERED: XARELTO20 MG PO (14:52)
== END 2023-10-15 14:14 | disposition home or self-care (01) ==
LOC: ER 11:09
DX: I73.9 Peripheral vascular disease, unspecified (principal); I10 Essential (primary) hypertension; E78.5 Hyperlipidemia, unspecified; Z87.891 Personal history of nicotine dependence; Z79.82 Long term (current) use of aspirin; Z79.02 Long term (current) use of antithrombotics/antiplatelets; Z79.899 Other long term (current) drug therapy
CPT/HCPCS: 93926; 93971; 99284-25

== ENCOUNTER 2024-02-14 17:55 | Observation (INO) | payer OTHER ==
[~2024-02-14] VITALS: Ht 167.6 cm; Wt 66.7 kg
[~2024-02-14 17:55] MED LIST changes: +Vitamin D1000 UNI1 PO; +XARELTO20 MG PO
[2024-02-14] MEDS ORDERED: DiphenhydrAMINE HCl 50 MG/ML 1ML Vial IV ONE (18:05)
[2024-02-14] MEDS ORDERED: Metoclopramide HCl 5MG / ML 2ML Vial IV ONE (18:05)
[2024-02-14] MEDS ORDERED: Acetaminophen 325 MG TABLET PO ONE (18:05)
[2024-02-14] MEDS ORDERED: NS 1,000 ML IV SCH (18:05)
[2024-02-14 18:10] LABS: BASOPHILS ABSOLUTE AUTO 0.04 K/mm3 (0.00-0.23); BASOPHILS PERCENT AUTO 0 % (0-2); EOSINOPHILS ABSOLUTE AUTO 0.05 K/mm3 (0.00-0.68); EOSINOPHILS PERCENT AUTO 1 % (0-6); Hematocrit 40.4 % (37.0-53.0); Hemoglobin 13.6 g/dL (13.5-17.5); IMMATURE GRAN ABSOLUTE AUTO 0.03 K/mm3 (0.00-0.10); IMMATURE GRAN PERCENT AUTO 0 % (0-1); LYMPHOCYTES ABSOLUTE AUTO 1.45 K/mm3 (0.84-5.20); LYMPHOCYTES PERCENT AUTO 16 % (21-46); MONOCYTES ABSOLUTE AUTO 0.86 K/mm3 (0.16-1.47); MONOCYTES PERCENT AUTO 9 % (4-13); Mean Corpuscular HGB 29.4 pg (26.0-34.0); Mean Corpuscular HGB Conc 33.7 g/dL (31.5-36.5); Mean Corpuscular Volume 87 fL (80-100); NEUTROPHILS ABSOLUTE AUTO 6.83 K/mm3 (1.96-9.15); NEUTROPHILS PERCENT AUTO 74 % (41-73); Platelet Count 229 K/mm3 (150-400); RDW Coefficient Variation 14.7 % (11.7-14.2); RDW Standard Deviation 47.6 fL (35.1-46.3); Red Blood Cell Count 4.63 M/mm3 (4.30-5.90); White Blood Cell Count 9.26 K/mm3 (4.00-11.30)
[2024-02-14] MEDS ORDERED: Meclizine HCl 25 MG Tab PO ONE (18:10)
[2024-02-14 18:23] LABS: Albumin, Blood 3.5 g/dL (3.4-5.0); Albumin/Globulin Ratio 1.2 (0.8-1.8); Bilirubin, Total 0.5 mg/dL (0.1-1.0); Bun/Creatinine Ratio 10.9 (12.0-20.0); Calcium, Blood 8.5 mg/dL (8.5-10.1); Creatinine, Blood 0.73 mg/dL (0.60-1.20); Magnesium, Blood 1.8 mg/dL (1.6-2.4); Potassium, Blood 3.6 mmol/L (3.5-5.5); Total Protein, Blood 6.5 g/dL (6.4-8.2)
[2024-02-14] MEDS ORDERED: Acetaminophen 325 MG TABLET PO PRN (21:50)
[2024-02-14] MEDS ORDERED: Aspirin 81 MG Chew PO SCH (22:00)
[2024-02-14] MEDS ORDERED: Atorvastatin 40 MG Tab PO SCH (22:00)
[2024-02-14] MEDS ORDERED: ASPI81CH PO (22:11)
[2024-02-14] MEDS ORDERED: CILO100 PO (22:11)
[2024-02-14 22:59] VITALS: BP 153/70
--- NOTE | 2024-02-15 04:36 | NUR ---
SHIFT SUMMARY: Pt is admitted for dizziness and is a full code. Is alert and able to make needs known. ADLs have been 1p while transferring but has remained in bed after coming to the floor. Denies pain when asked. Stated that he was dizzy while sitting up and with exertion. Telly reports sinus in the 80s. Had emesis x1 right after coming to the floor and transferring to bed. Nausea subsided shortly after being able to sit motionless for a couple of minutes in bed.
[2024-02-15 05:20] VITALS: BP 139/71
[2024-02-15 05:32] LABS: CHOL/HDL RATIO 1.3; Cholesterol 122 mg/dL (50-200); HDL Cholesterol 93 mg/dL (>39); LDL/HDL RATIO 0.2; Low Density Lipoprotein Chol 18 mg/dL (0-110); Triglycerides 57 mg/dL (30-160); Very Low Density Lipoprot Chol 11 mg/dL (6-32)
[2024-02-15 07:34] VITALS: BP 136/63
--- NOTE | 2024-02-15 07:44 | NUR ---
NOTE: PATIENT REPORTS NAUSEOUS, NOTIFIED DR. CARTER REGARDING THIS ISSUE. PER DR. CARTER HE WILL PUT SOMETHING IN.
[2024-02-15] MEDS ORDERED: Ondansetron 4 MG SoluTab MM PRN (07:50)
[2024-02-15] MEDS ORDERED: Cholecalciferol 1000 Unit Tablet (=25MCG) PO SCH (09:00)
[2024-02-15] MEDS ORDERED: Rivaroxaban 10 MG Tab PO SCH (09:00)
[2024-02-15] MEDS ORDERED: Meclizine HCl 25 MG Tab PO ONE (10:00)
--- NOTE | 2024-02-15 10:10 | NUR ---
NOTE: PATIENT LEFT THE ROOM AT THIS TIME VIA GURNEY TO MRI.
[2024-02-15] MEDS ORDERED: Meclizine HCl 25 MG Tab PO PRN (12:40)
--- NOTE | 2024-02-15 15:37 | NUR ---
SHIFT/DISCHARGE SUMMARY: PATIENT A/OX4, PLEASANT AND COOPERATIVE c CARE. PATIENT REPORTS DIZZINESS AND NAUSEA, MEDICATED FOR NAUSEA AND DIZZINESS PER EMAR c GOOD EFFECT. PATIENT DENIES CP/PRESSURE, SOB AND GENERALIZED PAIN. PATIENT ON TELE, SR HR IN THE 80'S BPM. PATIENT REPORTS FEELING BETTER AND REQUESTING TO GO HOME. NOTIFIED DR. CARTER REGARDING PATIENT REQUEST. PATIENT HAD MRI TO HEAD THIS PM, DR. CARTER DISCUSSED c PATIENT, SPOUSE AND SON'S MRI RESULT. PATIENT RECEIVED SCHEDULED MEDS PER EMAR. VITALS SIGNS REVIEWED. PATIENT PIV DC'D. PATIENT DISCHARGE HOME. DISCHARGE INSTRUCTIONS PACKET GIVEN TO PATIENT. EDUCATED PATIENT REGARDING ADMITTING DX'S OF DIZZINESS, S/S, TX, STOP ALCOHOL CONSUMPTION AND F/U c PCP. PATIENT AND SPOUSE AT BEDSIDE VERBALIZED UNDERSTANDING AND NO FURTHER QUESTIONS. PATIENT HAS NO NEW RX, RESUME HOME MEDS. ALL PATIENT PERSONAL BELONGINGS WERE SENT HOME c THE PATIENT. PATIENT LEFT THE ROOM AT 1535, TRANSPORTED VIA WHEELCHAIR BY ANDREW IRENE TO PATIENT ENTRANCE.
== END 2024-02-15 15:35 | disposition home health service (06) ==
LOC: ER 17:55 → MEDS 17:56
PROVIDERS: Student in an Organized Health Care Education/Training Program; ADMIT Internal Medicine
DX: R42 Dizziness and giddiness (principal); R11.2 Nausea with vomiting, unspecified; I10 Essential (primary) hypertension; E78.5 Hyperlipidemia, unspecified; I73.9 Peripheral vascular disease, unspecified; Z87.891 Personal history of nicotine dependence; Z79.01 Long term (current) use of anticoagulants; Z79.899 Other long term (current) drug therapy
CPT/HCPCS: 36415; 70450; 70496; 70498; 70551; 80053; 80061; 82607; 82746; 83735; 84484; 85025; 93005; 93010; 96361; 96374; 96375; 97116; 97161; 97530; 99285-25; A9270; G0378; J1200; J2765; J7030; Q9967

== ENCOUNTER → 2025-01-18 | Outpatient (CLI) | payer OTHER ==
[~2025-01-18] MED LIST changes: +CILO100 PO
[2025-01-18 17:42] LABS: BASOPHILS ABSOLUTE AUTO 0.04 K/mm3 (0.00-0.23); BASOPHILS PERCENT AUTO 1 % (0-2); EOSINOPHILS ABSOLUTE AUTO 0.08 K/mm3 (0.00-0.68); EOSINOPHILS PERCENT AUTO 1 % (0-6); Hematocrit 46.3 % (37.0-53.0); Hemoglobin 15.2 g/dL (13.5-17.5); IMMATURE GRAN ABSOLUTE AUTO 0.01 K/mm3 (0.00-0.10); IMMATURE GRAN PERCENT AUTO 0 % (0-1); LYMPHOCYTES ABSOLUTE AUTO 1.39 K/mm3 (0.84-5.20); LYMPHOCYTES PERCENT AUTO 25 % (21-46); MONOCYTES ABSOLUTE AUTO 0.72 K/mm3 (0.16-1.47); MONOCYTES PERCENT AUTO 13 % (4-13); Mean Corpuscular HGB Conc 32.8 g/dL (31.5-36.5); Mean Corpuscular Volume 96 fL (80-100); NEUTROPHILS ABSOLUTE AUTO 3.40 K/mm3 (1.96-9.15); NEUTROPHILS PERCENT AUTO 60 % (41-73); NRBC ABSOLUTE 0.00 K/mm3 (0.00-0.02); NRBC Auto 0.0 /100 WBC (0.0-0.2); Platelet Count 247 K/mm3 (150-400); RDW Coefficient Variation 13.7 % (11.7-14.2); RDW Standard Deviation 48.5 fL (35.1-46.3)
[2025-01-18 18:15] LABS: Alanine Aminotransfer (ALT/SGP 47 U/L (12-78); Albumin, Blood 4.0 g/dL (3.4-5.0); Albumin/Globulin Ratio 1.3 (0.8-1.8); Anion Gap 9 mmol/L (3-11); Aspartate Aminotrans (AST/SGOT 44 U/L (12-37); Bilirubin, Total 0.6 mg/dL (0.1-1.0); Blood Urea Nitrogen 5 mg/dL (8-24); CHOL/HDL RATIO 1.5; CO2, Blood 28 mmol/L (21-32); Calcium, Blood 8.8 mg/dL (8.5-10.1); Chloride, Blood 104 mmol/L (98-108); Cholesterol 132 mg/dL (50-200); Creatinine, Blood 0.68 mg/dL (0.60-1.20); Globulin, Blood 3.0 g/dL (2.2-4.0); Glucose, Blood 86 mg/dL (70-99); HDL Cholesterol 91 mg/dL (>39); LDL/HDL RATIO 0.3; Low Density Lipoprotein Chol 30 mg/dL (0-110); Potassium, Blood 4.6 mmol/L (3.5-5.5); Sodium, Blood 136 mmol/L (136-145); Total Protein, Blood 7.0 g/dL (6.4-8.2); Triglycerides 55 mg/dL (30-160); Very Low Density Lipoprot Chol 11 mg/dL (6-32)
== END ==
LOC: LAB 09:32 → LAB SHORT 09:32
PROVIDERS: Nurse Practitioner Family
DX: E78.00 Pure hypercholesterolemia, unspecified (principal)
CPT/HCPCS: 80053; 80061; 85025